=== PATIENT | female | born 1990 | race Caucasian/White ===

== ENCOUNTER → 2017-09-05 10:09 | Outpatient (CLI) | payer BC, SELFPAY ==
--- NOTE | 2017-09-05 10:09 | DT_ITS ---
This patient was seen during an EMR downtime September 02, 2017 - September 09, 2017. This patient may have a combination of paper and electronic documentation or all paper documentation. All documentation is viewable within the e-chart portion of [facility] for each patient visit.
[2017-09-10 01:37] LABS: ALB/GLOB Ratio 1.2 RATIO (0.9-2.4); AST(SGOT) 16 U/L (15-37); Alanine Aminotransfer ALT/SGPT 16 U/L (13-56); Albumin, Serum 3.7 g/dL (3.2-5.0); Alkaline Phosphatase 49 U/L (45-117); Anion Gap 9 (5-15); BUN 11 mg/dL (7-18); BUN/Creat Ratio 18.6 RATIO (10-20); Chloride 108 mmol/L (98-107); Creatinine, Serum 0.59 mg/dL (0.55-1.02); EST Glomerular Filtration Rate 128 mL/min (>60); Est Glom Filt Rate - Afr Amer 155 mL/min (>60); Glucose 79 mg/dL (74-106); Lithium 0.57 mmol/L (0.60-1.20); Potassium 3.9 mmol/L (3.5-5.1); Prolactin 5.7 ng/mL; Protein, Total 6.7 g/dL (6.4-8.2); Sodium Level 142 mmol/L (136-145); Thyroid Stim Hormone (TSH) 0.02 uIU/mL (0.358-3.74)
== END ==
PROVIDERS: Visit Provider Registered Nurse
DX: Z79.899 Other long term (current) drug therapy (principal)
CPT/HCPCS: 36415; 80053; 80178; 84146; 84443

== ENCOUNTER → 2019-10-27 | Outpatient (CLI) | payer BC, SELFPAY | END | disposition home or self-care (01) | LOC: MTDU 17:46 | PROVIDERS: PCP Family Medicine; Referring Provider Nurse Practitioner Primary Care; Visit Provider Nurse Practitioner Primary Care | DX: Z20.828 Contact with and (suspected) exposure to other viral communicable diseases (principal) | CPT/HCPCS: 87635; U0003 ==

== ENCOUNTER 2019-10-28 18:11 | Emergency (ER) | payer BC, SELFPAY ==
[2019-10-28 18:12] VITALS: BP 115/66; PULSE 70; RESP 16; TEMP 36.5; O2SAT 98; BMI 29.5
--- NOTE | 2019-10-28 19:06 | ED.DCSUM_ITS ---
History of Present Illness Chief Complaint: Headache Informant: Patient Onset: Weeks - Onset approximately 2 weeks ago Context: Gradual Onset Timing: Continuous Quality: Throbbing pain Location: Occiput Current Severity: Mild Maximum Severity: Severe Worsened by: Nothing Relieved by: Nothing Associated Symptoms: Binocular blurred vision, photophobia, sonophobia Narrative: Patient is a 29-year-old woman who presents with prolonged headache. She has no history of migraine headaches. Denies double vision, or loss of vision. She states she had binocular blurred vision. She denies rhinorrhea, congestion, postnasal drainage. She denies neck pain or neck stiffness. She does report photophobia and sonophobia. She reports nausea. Denies vomiting, but reports diarrhea today. She denies dysuria, frequency, urgency or hematuria. She de nies myalgias arthralgias. Denies joint pain or joint swelling. She denies history of autoimmune disorder. She has no other symptoms. There is no family history of subarachnoid hemorrhage or aneurysm. Prior similar symptoms: No Recent Illness/Hospitalization: No - Past Medical History (1) No significant past medical history Status: Acute Past Medical History - Allergies and Home Meds Allergies/Adverse Reactions: Allergies No Known Allergies Allergy (Verified 10/28/19 18:12) Primary Care Physician: Donato Henley MD [Primary Care Provider] - Prior records reviewed: Yes Surgical History: hysterectomy Lives: Spouse/ Significant Other, - Smoking Status: Never smoker Alcohol: Rare Drugs: None Review of Systems General: Denies: Chills, Fever, Malaise, Sweats Eyes: Reports: Blurred Vision - bilaterally. Denies: Visual changes - bilaterally, Diplopia ENT: Denies: Bilateral ear pain, Rhinorrhea, Sore throat Cardiovascular: Denies: Chest pain, Palpitations Respiratory: Denies: Dyspnea, Cough, Dyspnea on exertion Gastrointestinal: Denies: Abdominal pain, Nausea, Vomiting, Diarrhea, Constipation, Melena, Hematochezia Genitourinary: Denies: Dysuria, Hematuria, Frequency Musculoskeletal: Denies: Myalgias, Arthralgias, Neck pain Skin: Denies: Rash, Abscess, Abrasions, Wounds Neurological: Denies: Headache, Weakness, Parasthesia Psych: Reports: Depression, Anxiety Endocrine: Denies: Polyuria, Polydipsia Hematologic: Denies: Easy bruising, Easy bleeding Physical Exam Vital Signs/Narrative: Vital Signs Temp Pulse Resp BP Pulse Ox 10/28/19 18:12 97.7 F L 70 16 115/66 98 Inital Vital Signs reviewed: Yes General: Well nourished, Well developed, Obese, No Acute Distress Head: Normocephalic, Atraumatic Eyes: Perrl, EOMI. Negative for: Pale conjunctiva, Scleral icterus ENT: Moist mucous membranes, No rhinorrhea, TM's clear. Negative for: Sinus tenderness Neck: Supple, Nontender, No lymphadenopathy, No JVD Cardiovascular: Regular rate, Regular rhythm, No murmurs, Normal S1, Normal S2 Respiratory: No distress, CTA bilaterally, Chest nontender Abdomen: Soft, Nontender, Nondistended, Normal bowel sounds Back: Nontender, Normal Inspection Extremities: Nontender, No edema Skin: Normal color, No rash Neurological: Alert, Oriented x3, Cranial nerves II-XII grossly intact, Normal Strength, Normal Sensation, Normal DTR, Normal Gait, - - Cerebellar testing is normal. Psychological: Normal affect, Normal Mood Diagnostic/Tx/Re-eval - Medical Decision Making IV was established. She was medicated with Benadryl, Reglan and Toradol. Suspect this is a vascular headache. If there is no improvement will consider CT of the head. Presentation is not consistent with subarachnoid hemorrhage or meningitis. More is her history of physical exam suggestive of sinusitis. Patient was reassessed at 2030. She is now smiling. Headache has essentially resolved. Will discharge to home. ED Disposition - Plan for ED Patient: Disposition: Home or Assisted Living Diagnosis: Migraine with intractable migraine, so stated, with status migrainosus Instructions: ED Headache Unspecified, ED, Migraine (Classical) Referrals: Donato Henley MD [Primary Care Provider] - As Needed
[2019-10-28] MEDS: 0.9% Normal Saline 1,000 ML 999 ML IV (19:45)
[2019-10-28] MEDS: DiphenhydrAMINE 50 MG/ML Syringe 25 MG IV (19:46)
[2019-10-28] MEDS: Metoclopramide 10 MG/2 ML Vial IV (19:46)
[2019-10-28] MEDS: Ketorolac 30 MG/ML Syringe 15 MG IV (19:48)
== END 2019-10-28 20:49 | disposition home or self-care (01) ==
PROVIDERS: Emergency Provider Emergency Medicine; PCP Family Medicine
DX: G43.911 Migraine, unspecified, intractable, with status migrainosus (principal)
CPT/HCPCS: 96361; 96374; 96375; 99282; J7030; A4216